=== PATIENT | male | born 1975 | race African-American/Black ===

== ENCOUNTER 2024-04-04 11:23 | Emergency (ER) | payer MEDICARE, SELFPAY ==
[2024-04-04 11:25] VITALS: BP 134/92
--- NOTE | 2024-04-04 11:51 | ED.GENMED ---
History of Present Illness
General
Chief Complaint: Oral/Mouth Problem
Source: patient
Exam Limitations: none
Time Seen by Provider: 04/04/24 11:28
Nursing documentation reviewed up to this point in time: agreed with
History of Present Illness
History of Present Illness:
48 year-old male past medical history of hypertension right-sided leg amputation presenting to the emergency department today with concerns of upper lip swelling over the past few days. Noticed this moment discomfort after using facial hair
clippers. Denies any trouble swallowing breathing chest pain or shortness of breath.
Past History
Past History
ED Past Medical History: HTN
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
Social History
Tobacco: Smoker
Alcohol: Occasional
Drug: None
Personal: Single
Living: alone
Review of Systems
Review of Systems
Allergies reviewed?: Yes
All Other Systems: ROS reviewed and negative except as documented in HPI and ROS
Phy Exam
Physical Exam
Physical Exam:
GENERAL: Alert , in no apparent distress
EYE: pupils equal and reactive
NECK: Supple, no significant adenopathy.
ENT: Mild swelling to the left upper lip with a small area of redness around the areas mustache to the left upper lip. No fluctuance or induration. o/p clr, mmm.
CARDIAC: Regular rate and rhythm .
LUNGS: Clear breath sounds bilaterally, no acute respiratory distress, no wheezes/rales/rhonchi
ABDOMEN: Soft, without focal tenderness, no r/g, no cvat
NEUROLOGICAL: Alert and oriented, no focal neuro deficits
SKIN: Warm and dry, skin intact.
MUSCULOSKELETAL: No edema, well perfused.
PSYCH: Normal and appropriate interaction.
Course
Orders/Labs/Results
Orders:
Orders
04/04/24 11:47
Doxycycline [Vibramycin] 100 mg PO NOW STA
Vital Signs
Initial and Last Documented VS:
Initial Vital Signs
Temp Pulse Resp BP Pulse Ox
98.3 F 96 16 134/92 100
04/04/24 11:25 04/04/24 11:25 04/04/24 11:25 04/04/24 11:25 04/04/24 11:25
Last Documented Vital Signs
Temp Pulse Resp BP Pulse Ox
98.3 F 96 16 134/92 100
04/04/24 11:25 04/04/24 11:25 04/04/24 11:25 04/04/24 11:25 04/04/24 11:25
MDM/Problems Addressed
MDM/Problems Addressed:
48-year-old male presenting to the emergency department today with concerns of left upper lip swelling past few days seem to occur after using facial hair clippers. On examination appears have a small infection likely from the recent hair cutting
no signs of fluctuance or induration no evidence of abscess. Was started on antibiotics and topical antibiotics for possible folliculitis. Otherwise stable of airway compromise no systemic illness return precautions given.
*Critical Care Note
Total Time (30-74mins, 75-104mins- exclusive of procedures): Not Applicable
ED Attending Note
-
Portions of this chart may have been created with voice recognition software.� Occasional wrong word or��sound alike� substitutions may have occurred due to the inherent limitations of voice recognition software.
Discharge Plan
Departure
Patient Disposition: Home (Routine Discharge)
Date of Disposition: 04/04/24
Time of Disposition: 11:54
Patient with high blood pressure during this ER visit?: No
Condition: Good
Covid-19: Not Applicable
Discharge Problem:
Folliculitis barbae
Instructions: Bacterial Folliculitis (DC)
Prescriptions:
New
doxycycline hyclate 100 mg tablet
100 mg PO BID 7 Days Qty: 14 0RF
mupirocin 2 % ointment
1 applic topical BID Qty: 15 0RF
No Action
amlodipine-benazepril 1 EACH capsule
1 ea PO
prednisone 50 MG tablet
50 mg PO DAILY Qty: 3 0RF
hydrocodone-acetaminophen 1 TABLET tablet
1 tab PO Q4HPRN PRN (Reason: pain) Qty: 12 0RF
prednisone 50 mg tablet
50 mg PO DAILY Qty: 5 0RF
Activity Restrictions/Additional Instructions:
You came to the emergency department today with concerns of lip swelling. This is likely from a bacterial infection that was observed to your upper lip. Please use the doxycycline twice daily and the mupirocin ointment to the affected area over
the next week. Return for any progressive or worsening symptoms.
Interventions
Interventions:
*Risk Screen - Suicide Last Done: 04/04/24 11:50
*General Assessment Last Done: 04/04/24 11:50
*Neglect/Abuse Screening Last Done: 04/04/24 11:50
*ED COVID-19 Vaccine History Last Done: 04/04/24 11:50
Discharge Date and Time
Print Language: SLOVAK
[2024-04-04] MEDS: VIBRAMYCIN 100 MG PO (11:57)
== END 2024-04-04 12:26 | disposition home or self-care (01) ==
LOC: EMR 11:23
PROVIDERS: EMERGENCY PHYSICIAN Emergency Medicine; FAMILY PHYSICIAN Internal Medicine
DX: L73.1 Pseudofolliculitis barbae (principal); F17.200 Nicotine dependence, unspecified, uncomplicated; I10 Essential (primary) hypertension
CPT/HCPCS: 99283